=== PATIENT | female | born 1960 | race Caucasian/White ===

== ENCOUNTER 2018-10-01 16:04 | Inpatient (IN) | payer OTHER ==
[2018-10-01] MEDS: HYDROCODONE/APAP (5/325) TAB PO ×2 (16:38→19:08)
[2018-10-01] MEDS: ONDANSETRON (ODT) 4 MG TAB ODT (16:38)
[2018-10-01 19:51] LABS: ADD MAN DIFF? NO
[2018-10-01 19:53] LABS: WHITE BLOOD COUNT 10.8 10^3/ul (4.8-10.8)
[2018-10-01 19:53] LABS: BASOPHIL # 0.1 10^3/ul (0.0-0.1); BASOPHILS % 0.6 % (0.0-2.0); EOSINOPHILS # 0.1 10^3/ul (0.0-0.5); EOSINOPHILS % 0.9 % (0.0-7.0); LYMPHOCYTES # 2.9 10^3/ul (0.8-2.9); MEAN CORPUSCULAR HEMOGLOBIN 29.4 pg (29.0-33.0); MEAN CORPUSCULAR HGB CONC 33.3 g/dl (32.0-37.0); MEAN CORPUSCULAR VOLUME 88.2 fl (82.0-101.0); MEAN PLATELET VOLUME 10.2 fl (7.4-10.4); MONOCYTE # 0.8 10^3/ul (0.3-0.9); MONOCYTES % 6.9 % (0.0-11.0); NEUTROPHILS % 64.3 % (39.0-77.0); PLATELET COUNT 232 10^3/UL (140-415); RED BLOOD COUNT 4.42 10^6/ul (4.20-5.40); RED CELL DISTRIBUTION WIDTH 11.9 % (11.5-14.5)
[2018-10-01 20:14] LABS: ALANINE AMINOTRANSFERASE 18 IU/L (13-69); ALBUMIN 4.3 g/dl (3.3-4.9); ALBUMIN/GLOBULIN RATIO 1.22; ALKALINE PHOSPHATASE 115 IU/L (42-121); ANION GAP 11 (5-13); ASPARTATE AMINO TRANSFERASE 35 IU/L (15-46); BILIRUBIN,INDIRECT 0.5 mg/dl (0-1.1); BILIRUBIN,TOTAL 0.5 mg/dl (0.2-1.3); BLOOD UREA NITROGEN 9 mg/dl (7-20); CALCIUM 9.4 mg/dl (8.4-10.2); CARBON DIOXIDE 28 mmol/L (21-31); CHLORIDE 97 mmol/L (97-110); CREATININE 0.49 mg/dl (0.44-1.00); Estimated GFR > 60 mL/min (>60); GLUCOSE 221 mg/dl (70-220); POTASSIUM 4.5 mmol/L (3.5-5.1); SODIUM 136 mmol/L (135-144); TOTAL PROTEIN 7.8 g/dl (6.1-8.1)
[2018-10-01] MEDS ORDERED: NACL 0.9% 3 ML SYG IV (20:30)
[2018-10-01] MEDS ORDERED: morphine 2 MG INJ IV (20:30)
[2018-10-01] MEDS ORDERED: GLUCOSE GEL 15 GRAM TUBE PO ×2 (21:00)
[2018-10-01] MEDS ORDERED: GLUCAGON 1 MG INJ IM (21:00)
[2018-10-01] MEDS: INSULIN ASPART [NOVOLOG] 3 ML PEN SC (21:00)
[2018-10-01] MEDS ORDERED: DEXTROSE 50% 50 ML SYRINGE IV ×2 (21:00)
[2018-10-01] MEDS ORDERED: GLUCOSE GEL 15 GRAM TUBE BUCCAL (21:00)
[2018-10-01 21:52] LABS: INR 0.96; PROTIME 12.9 Sec (11.9-14.9)
[2018-10-01 21:53] LABS: PARTIAL THROMBOPLASTIN TIME 26.3 Sec (23.0-35.0)
[2018-10-02] MEDS: HYDROmorphONE 0.5 MG/0.5 ML SYG IV ×5 (00:05→19:55)
[2018-10-02] MEDS ORDERED: HEPARIN 5,000 UNIT/0.5 ML VIAL ×3 (00:12→15:28)
[2018-10-02] MEDS: clonAZEPAM 0.5 MG TAB PO ×3 (00:31→20:33)
[2018-10-02] MEDS: INSULIN ASPART [NOVOLOG] 3 ML PEN SC ×9 (00:38→21:00)
[2018-10-02] MEDS: HEPARIN 5,000 UNIT/1 ML VIAL SC ×4 (00:39→16:02)
[2018-10-02] MEDS: ACCU-CHEK XX ×5 (02:00→21:00)
[2018-10-02] MEDS: LORAZEPAM 2 MG INJ IV (02:17)
[2018-10-02] MEDS: SOD CHLORIDE 0.9% 1,000 ML IV (02:17)
[2018-10-02] MEDS: ACETAMINOPHEN 325 MG TAB PO (05:11)
[2018-10-02 05:32] LABS: ADD MAN DIFF? NO
[2018-10-02 05:36] LABS: BASOPHIL # 0.1 10^3/ul (0.0-0.1); BASOPHILS % 0.8 % (0.0-2.0); EOSINOPHILS % 0.4 % (0.0-7.0); HEMATOCRIT 34.1 % (37.0-47.0); HEMOGLOBIN 11.5 g/dl (12.0-16.0); LYMPHOCYTES # 1.5 10^3/ul (0.8-2.9); LYMPHOCYTES % 18.3 % (15.0-51.0); MEAN CORPUSCULAR HEMOGLOBIN 29.6 pg (29.0-33.0); MEAN CORPUSCULAR HGB CONC 33.7 g/dl (32.0-37.0); MEAN CORPUSCULAR VOLUME 87.9 fl (82.0-101.0); MEAN PLATELET VOLUME 10.5 fl (7.4-10.4); MONOCYTE # 0.7 10^3/ul (0.3-0.9); MONOCYTES % 7.8 % (0.0-11.0); NEUTROPHILS % 72.5 % (39.0-77.0); PLATELET COUNT 218 10^3/UL (140-415); RED BLOOD COUNT 3.88 10^6/ul (4.20-5.40); RED CELL DISTRIBUTION WIDTH 11.9 % (11.5-14.5)
[2018-10-02 05:36] LABS: WHITE BLOOD COUNT 8.3 10^3/ul (4.8-10.8)
[2018-10-02 06:01] LABS: HEMOGLOBIN A1C 10.4 % (0-5.9)
[2018-10-02 06:13] LABS: ALANINE AMINOTRANSFERASE 22 IU/L (13-69); ALBUMIN/GLOBULIN RATIO 1.42; ALKALINE PHOSPHATASE 118 IU/L (42-121); ANION GAP 11 (5-13); ASPARTATE AMINO TRANSFERASE 22 IU/L (15-46); BILIRUBIN,INDIRECT 0.7 mg/dl (0-1.1); BILIRUBIN,TOTAL 0.7 mg/dl (0.2-1.3); BLOOD UREA NITROGEN 9 mg/dl (7-20); CALCIUM 8.9 mg/dl (8.4-10.2); CARBON DIOXIDE 28 mmol/L (21-31); CHLORIDE 96 mmol/L (97-110); CHOL/HDL RATIO 4.4 RATIO; CHOLESTEROL 216 mg/dl (100-200); CREATININE 0.55 mg/dl (0.44-1.00); Estimated GFR > 60 mL/min (>60); GLUCOSE 264 mg/dl (70-220); HDL CHOLESTEROL 49 mg/dl (37-92); LDL CHOLESTEROL,CALCULATED 131 mg/dl; MAGNESIUM 1.8 mg/dl (1.7-2.5); SODIUM 135 mmol/L (135-144); TOTAL PROTEIN 6.8 g/dl (6.1-8.1); TRIGLYCERIDES 182 mg/dl (0-149)
[2018-10-02] MEDS: LORATADINE 10 MG TAB PO (08:27)
[2018-10-02] MEDS: ESCITALOPRAM 10 MG TAB PO (08:27)
[2018-10-02] MEDS: PANTOPRAZOLE (EC) 40 MG TAB PO (08:27)
[2018-10-02] MEDS: LACTATED RINGER'S 1,000 ML IV (11:51)
[2018-10-02 12:49] LABS: ADD UMIC YES; UR ASCORBIC ACID NEGATIVE (NEGATIVE); UR BACTERIA FEW /HPF (NONE SEEN); UR BILIRUBIN (Dip) NEGATIVE (NEGATIVE); UR BLOOD (Dip) 1+ mg/dL (NEGATIVE); UR CLARITY CLEAR (CLEAR); UR COLOR YELLOW (YELLOW); UR GLUCOSE (Dip) 2+ mg/dL (NEGATIVE); UR KETONES (Dip) TRACE mg/dL (NEGATIVE); UR LEUKOCYTE ESTERASE (Dip) TRACE Leu/ul (NEGATIVE); UR MUCUS FEW /HPF (NONE SEEN); UR NITRITE (Dip) NEGATIVE (NEGATIVE); UR RBC 31 /HPF (0-5); UR SPECIFIC GRAVITY (Dip) 1.023 (1.003-1.030); UR TOTAL PROTEIN (Dip) NEGATIVE (NEGATIVE); UR UROBILINOGEN (Dip) 1+ mg/dL (NEGATIVE); UR WBC 3 /HPF (0-5)
[2018-10-02] MEDS: metFORMIN 500 MG TAB NGT (17:43)
[2018-10-02] MEDS: GABAPENTIN 300 MG CAP PO (18:22)
[2018-10-02] MEDS: ATORVASTATIN 40 MG TAB PO (20:33)
[2018-10-02] MEDS: INSULIN GLARGINE [LANTus] (100 UNITS/ML) SYG SC (20:41)
[2018-10-02] MEDS ORDERED: ATORVASTATIN 20 MG TAB PO (21:00)
[2018-10-02] MEDS: BISACODYL (EC) 5 MG TAB PO (23:25)
[2018-10-02] MEDS: DOCUSATE SODIUM 100 MG CAP PO (23:25)
[2018-10-03] MEDS: HYDROmorphONE 0.5 MG/0.5 ML SYG IV ×3 (00:05→12:26)
[2018-10-03] MEDS: LACTATED RINGER'S 1,000 ML IV ×2 (01:20→05:58)
[2018-10-03] MEDS: ACCU-CHEK XX ×8 (02:00→21:00)
[2018-10-03] MEDS: ACETAMINOPHEN 325 MG TAB PO (02:12)
[2018-10-03] MEDS: PANTOPRAZOLE (EC) 40 MG TAB PO (05:58)
[2018-10-03] MEDS ORDERED: EPHEDrine SULFATE 50 MG/5 ML SYG (07:00)
[2018-10-03] MEDS: metFORMIN 500 MG TAB NGT ×2 (07:50→17:55)
[2018-10-03] MEDS: INSULIN ASPART [NOVOLOG] 3 ML PEN SC ×7 (07:50→21:38)
[2018-10-03] MEDS: ESCITALOPRAM 10 MG TAB PO (09:00)
[2018-10-03] MEDS: clonAZEPAM 0.5 MG TAB PO ×2 (09:00→21:39)
[2018-10-03] MEDS: LORATADINE 10 MG TAB PO (09:00)
[2018-10-03] MEDS: LISINOPRIL 10 MG TAB PO (11:00)
[2018-10-03] MEDS: FOSFOMYCIN 3 GM PACKET PO (11:00)
[2018-10-03] MEDS ORDERED: DIPHENHYDRAMINE 50 MG INJ IV (14:30)
[2018-10-03] MEDS ORDERED: hydrALAzine 20 MG INJ IV ×2 (14:30)
[2018-10-03] MEDS ORDERED: LABETALOL HCL 20MG INJ IV (14:30)
[2018-10-03] MEDS ORDERED: ONDANSETRON 4 MG INJ IV (14:30)
[2018-10-03] MEDS ORDERED: HYDROmorphONE 1 MG/5 ML IV SYRINGE IV ×3 (14:30)
[2018-10-03] MEDS ORDERED: MEPERIDINE 25 MG INJ IV (14:30)
[2018-10-03] MEDS ORDERED: FENTAnyl 50 MCG/ML VIAL (14:49)
[2018-10-03] MEDS ORDERED: MIDAZOLAM 1 MG/ML 2 ML INJ (14:49)
[2018-10-03] MEDS ORDERED: METOCLOPRAMIDE 10 MG INJ (14:49)
[2018-10-03] MEDS ORDERED: ROPIVACAINE 0.5 % 30 ML VIAL (14:49)
[2018-10-03] MEDS ORDERED: PROPOFOL 20 ML (14:49)
[2018-10-03] MEDS ORDERED: ONDANSETRON 4 MG INJ (14:49)
[2018-10-03] MEDS ORDERED: CEFAZOLIN 1 GM INJ (15:17)
[2018-10-03] MEDS: POLYMYXIN/BACITRACIN 1L IRRIG (17:07)
[2018-10-03] MEDS ORDERED: KETOROLAC 30 MG INJ (18:00)
[2018-10-03] MEDS: GABAPENTIN 300 MG CAP PO (18:55)
[2018-10-03] MEDS: CEFAZOLIN 2 GM/50 ML (PMX) 50 ML IVPB ×2 (19:00→23:14)
[2018-10-03] MEDS ORDERED: NACL 0.9% 3 ML SYG IV (19:00)
[2018-10-03 19:33] LABS: ADD MAN DIFF? NO
[2018-10-03 19:35] LABS: WHITE BLOOD COUNT 9.4 10^3/ul (4.8-10.8)
[2018-10-03 19:35] LABS: BASOPHIL # 0.1 10^3/ul (0.0-0.1); BASOPHILS % 0.7 % (0.0-2.0); EOSINOPHILS % 0.4 % (0.0-7.0); HEMATOCRIT 32.4 % (37.0-47.0); HEMOGLOBIN 11.2 g/dl (12.0-16.0); LYMPHOCYTES # 2.4 10^3/ul (0.8-2.9); MEAN CORPUSCULAR HGB CONC 34.6 g/dl (32.0-37.0); MEAN CORPUSCULAR VOLUME 86.9 fl (82.0-101.0); MONOCYTE # 0.7 10^3/ul (0.3-0.9); MONOCYTES % 7.5 % (0.0-11.0); NEUTROPHIL # 6.1 10^3/ul (1.6-7.5); NEUTROPHILS % 64.9 % (39.0-77.0); PLATELET COUNT 190 10^3/UL (140-415); RED BLOOD COUNT 3.73 10^6/ul (4.20-5.40)
[2018-10-03 19:54] LABS: ANION GAP 14 (5-13); BLOOD UREA NITROGEN 9 mg/dl (7-20); CALCIUM 8.5 mg/dl (8.4-10.2); CARBON DIOXIDE 20 mmol/L (21-31); CHLORIDE 94 mmol/L (97-110); CREATININE 0.59 mg/dl (0.44-1.00); Estimated GFR > 60 mL/min (>60); GLUCOSE 240 mg/dl (70-220); POTASSIUM 3.8 mmol/L (3.5-5.1); SODIUM 128 mmol/L (135-144)
[2018-10-03] MEDS: ONDANSETRON 4 MG INJ IV (20:52)
[2018-10-03] MEDS: SOD CHLORIDE 0.9% 1,000 ML IV (20:53)
[2018-10-03] MEDS: HYDROmorphONE 1 MG/ML SYG IV (21:24)
[2018-10-03] MEDS: ATORVASTATIN 40 MG TAB PO (21:25)
[2018-10-03] MEDS: INSULIN GLARGINE [LANTus] (100 UNITS/ML) SYG SC (21:39)
[2018-10-03] MEDS: DOCUSATE SODIUM 100 MG CAP PO (23:27)
[2018-10-03] MEDS: HYDROCODONE/APAP (5/325) TAB PO (23:27)
[2018-10-04] MEDS: LORAZEPAM 2 MG INJ IV (00:42)
[2018-10-04] MEDS: ACCU-CHEK XX ×6 (01:58→20:13)
[2018-10-04] MEDS: INSULIN ASPART [NOVOLOG] 3 ML PEN SC ×8 (02:39→20:13)
[2018-10-04] MEDS: HYDROCODONE/APAP (5/325) TAB PO ×3 (02:46→09:46)
[2018-10-04] MEDS: LACTATED RINGER'S 1,000 ML IV (04:00)
[2018-10-04 05:01] LABS: ADD MAN DIFF? NO
[2018-10-04 05:13] LABS: BASOPHILS % 0.4 % (0.0-2.0); EOSINOPHILS % 0.2 % (0.0-7.0); HEMATOCRIT 33.6 % (37.0-47.0); HEMOGLOBIN 11.4 g/dl (12.0-16.0); LYMPHOCYTES # 1.6 10^3/ul (0.8-2.9); LYMPHOCYTES % 15.8 % (15.0-51.0); MEAN CORPUSCULAR HEMOGLOBIN 29.8 pg (29.0-33.0); MEAN CORPUSCULAR HGB CONC 33.9 g/dl (32.0-37.0); MEAN CORPUSCULAR VOLUME 87.7 fl (82.0-101.0); MEAN PLATELET VOLUME 10.2 fl (7.4-10.4); MONOCYTE # 1.1 10^3/ul (0.3-0.9); MONOCYTES % 11.4 % (0.0-11.0); NEUTROPHILS % 71.7 % (39.0-77.0); PLATELET COUNT 191 10^3/UL (140-415); RED BLOOD COUNT 3.83 10^6/ul (4.20-5.40); RED CELL DISTRIBUTION WIDTH 11.9 % (11.5-14.5)
[2018-10-04 05:13] LABS: WHITE BLOOD COUNT 9.8 10^3/ul (4.8-10.8)
[2018-10-04 05:21] LABS: ANION GAP 11 (5-13); BLOOD UREA NITROGEN 7 mg/dl (7-20); CALCIUM 8.5 mg/dl (8.4-10.2); CARBON DIOXIDE 25 mmol/L (21-31); CHLORIDE 92 mmol/L (97-110); CREATININE 0.47 mg/dl (0.44-1.00); Estimated GFR > 60 mL/min (>60); GLUCOSE 177 mg/dl (70-220); SODIUM 128 mmol/L (135-144)
[2018-10-04] MEDS: CEFAZOLIN 2 GM/50 ML (PMX) 50 ML IVPB ×2 (06:29→14:53)
[2018-10-04] MEDS: PANTOPRAZOLE (EC) 40 MG TAB PO (06:30)
[2018-10-04 06:36] LABS: POTASSIUM 3.9 mmol/L (3.5-5.1)
[2018-10-04] MEDS: BISACODYL (EC) 5 MG TAB PO (07:05)
[2018-10-04] MEDS: HYDROmorphONE 0.5 MG/0.5 ML SYG IV ×2 (07:49→13:33)
[2018-10-04] MEDS: clonAZEPAM 0.5 MG TAB PO ×2 (08:34→20:13)
[2018-10-04] MEDS: metFORMIN 500 MG TAB NGT ×2 (08:34→17:55)
[2018-10-04] MEDS: LISINOPRIL 10 MG TAB PO (08:35)
[2018-10-04] MEDS: LORATADINE 10 MG TAB PO (08:35)
[2018-10-04] MEDS: ESCITALOPRAM 10 MG TAB PO (08:35)
[2018-10-04] MEDS: SOD CHLORIDE 0.9% 1,000 ML IV (08:36)
[2018-10-04] MEDS: ENOXAPARIN 40 MG/0.4 ML SYG SC (08:40)
[2018-10-04] MEDS: HYDROCODONE/APAP (10/325) TAB PO ×3 (10:57→20:04)
[2018-10-04 12:05] LABS: OSMOLALITY,URINE 559 mOsm/kg (250-1200)
[2018-10-04 12:05] LABS: OSMOLALITY 261 mOsm/kg (280-295)
[2018-10-04] MEDS: POLYETHYLENE GLYCOL 17 GM PACKET PO ×2 (12:13→20:05)
[2018-10-04] MEDS: HYDROmorphONE 1 MG/ML SYG IV ×2 (16:43→22:24)
[2018-10-04] MEDS: GABAPENTIN 300 MG CAP PO (19:08)
[2018-10-04] MEDS: ATORVASTATIN 40 MG TAB PO (20:04)
[2018-10-04] MEDS: INSULIN GLARGINE [LANTus] (100 UNITS/ML) SYG SC (20:12)
[2018-10-05] MEDS: HYDROCODONE/APAP (10/325) TAB PO ×5 (01:14→21:45)
[2018-10-05] MEDS: ACCU-CHEK XX ×5 (02:00→20:36)
[2018-10-05 05:05] LABS: ADD MAN DIFF? NO
[2018-10-05 05:09] LABS: ABNORMAL IP MESSAGE 1; BASOPHILS % 0.3 % (0.0-2.0); EOSINOPHILS # 0.1 10^3/ul (0.0-0.5); EOSINOPHILS % 1.3 % (0.0-7.0); HEMATOCRIT 30.9 % (37.0-47.0); HEMOGLOBIN 10.6 g/dl (12.0-16.0); LYMPHOCYTES # 2.6 10^3/ul (0.8-2.9); LYMPHOCYTES % 24.4 % (15.0-51.0); MEAN CORPUSCULAR HEMOGLOBIN 29.7 pg (29.0-33.0); MEAN CORPUSCULAR HGB CONC 34.3 g/dl (32.0-37.0); MEAN CORPUSCULAR VOLUME 86.6 fl (82.0-101.0); MEAN PLATELET VOLUME 10.1 fl (7.4-10.4); MONOCYTE # 1.6 10^3/ul (0.3-0.9); MONOCYTES % 14.7 % (0.0-11.0); NEUTROPHIL # 6.2 10^3/ul (1.6-7.5); NEUTROPHILS % 58.9 % (39.0-77.0); PLATELET COUNT 231 10^3/UL (140-415); RED BLOOD COUNT 3.57 10^6/ul (4.20-5.40); RED CELL DISTRIBUTION WIDTH 11.9 % (11.5-14.5)
[2018-10-05 05:09] LABS: WHITE BLOOD COUNT 10.5 10^3/ul (4.8-10.8)
[2018-10-05 05:40] LABS: ANION GAP 13 (5-13); BLOOD UREA NITROGEN 4 mg/dl (7-20); CALCIUM 8.7 mg/dl (8.4-10.2); CARBON DIOXIDE 25 mmol/L (21-31); CHLORIDE 90 mmol/L (97-110); CREATININE 0.46 mg/dl (0.44-1.00); Estimated GFR > 60 mL/min (>60); GLUCOSE 77 mg/dl (70-220); POSITIVE DIFF @See below; POTASSIUM 3.7 mmol/L (3.5-5.1); SODIUM 128 mmol/L (135-144)
[2018-10-05] MEDS: PANTOPRAZOLE (EC) 40 MG TAB PO (05:40)
[2018-10-05 05:41] LABS: MAGNESIUM 1.8 mg/dl (1.7-2.5)
[2018-10-05 05:41] LABS: PHOSPHORUS 3.7 mg/dl (2.5-4.9)
[2018-10-05] MEDS: DOCUSATE SODIUM 100 MG CAP PO (06:16)
[2018-10-05] MEDS: INSULIN ASPART [NOVOLOG] 3 ML PEN SC ×7 (07:50→20:50)
[2018-10-05] MEDS: LISINOPRIL 10 MG TAB PO (08:46)
[2018-10-05] MEDS: LORATADINE 10 MG TAB PO (08:46)
[2018-10-05] MEDS: metFORMIN 500 MG TAB NGT ×2 (08:46→17:52)
[2018-10-05] MEDS: clonAZEPAM 0.5 MG TAB PO ×2 (08:49→20:29)
[2018-10-05] MEDS: POLYETHYLENE GLYCOL 17 GM PACKET PO ×2 (08:49→20:29)
[2018-10-05] MEDS: ESCITALOPRAM 10 MG TAB PO (08:49)
[2018-10-05] MEDS: ENOXAPARIN 40 MG/0.4 ML SYG SC (08:50)
[2018-10-05] MEDS: HYDROmorphONE 1 MG/ML SYG IV ×2 (08:56→13:00)
[2018-10-05] MEDS: GABAPENTIN 300 MG CAP PO (17:52)
[2018-10-05] MEDS: BISACODYL (EC) 5 MG TAB PO (17:52)
[2018-10-05] MEDS: ATORVASTATIN 40 MG TAB PO (20:29)
[2018-10-05] MEDS: INSULIN GLARGINE [LANTus] (100 UNITS/ML) SYG SC (20:31)
[2018-10-05 20:32] LABS: SODIUM,URINE RANDOM 41 mmol/L (30-90)
[2018-10-05 20:55] LABS: AMPHETAMINE/METHAMPHETAMINE NEGATIVE (NEGATIVE); BARBITURATES NEGATIVE (NEGATIVE); BENZODIAZEPINES NEGATIVE (NEGATIVE); CANNABINOIDS NEGATIVE (NEGATIVE); COCAINE NEGATIVE (NEGATIVE)
[2018-10-05 20:56] LABS: OPIATES POSITIVE (NEGATIVE)
[2018-10-05 20:56] LABS: OSMOLALITY,URINE 752 mOsm/kg (250-1200)
[2018-10-06] MEDS: HYDROmorphONE 1 MG/ML SYG IV ×2 (00:41→10:38)
[2018-10-06] MEDS: ACCU-CHEK XX ×5 (02:00→20:49)
[2018-10-06] MEDS: HYDROCODONE/APAP (10/325) TAB PO ×4 (04:18→22:48)
[2018-10-06 05:35] LABS: ADD MAN DIFF? NO
[2018-10-06 05:50] LABS: BASOPHIL # 0.1 10^3/ul (0.0-0.1); BASOPHILS % 0.5 % (0.0-2.0); EOSINOPHILS # 0.1 10^3/ul (0.0-0.5); EOSINOPHILS % 1.4 % (0.0-7.0); HEMATOCRIT 28.4 % (37.0-47.0); HEMOGLOBIN 9.8 g/dl (12.0-16.0); LYMPHOCYTES # 1.8 10^3/ul (0.8-2.9); LYMPHOCYTES % 18.3 % (15.0-51.0); MEAN CORPUSCULAR HEMOGLOBIN 29.7 pg (29.0-33.0); MEAN CORPUSCULAR HGB CONC 34.5 g/dl (32.0-37.0); MEAN CORPUSCULAR VOLUME 86.1 fl (82.0-101.0); MONOCYTE # 1.2 10^3/ul (0.3-0.9); MONOCYTES % 12.3 % (0.0-11.0); NEUTROPHIL # 6.6 10^3/ul (1.6-7.5); NEUTROPHILS % 66.9 % (39.0-77.0); PLATELET COUNT 254 10^3/UL (140-415)
[2018-10-06 05:50] LABS: WHITE BLOOD COUNT 9.8 10^3/ul (4.8-10.8)
[2018-10-06] MEDS: PANTOPRAZOLE (EC) 40 MG TAB PO (05:59)
[2018-10-06 06:30] LABS: PHOSPHORUS 3.2 mg/dl (2.5-4.9)
[2018-10-06 06:30] LABS: MAGNESIUM 1.8 mg/dl (1.7-2.5)
[2018-10-06 07:20] LABS: ANION GAP 14 (5-13); BLOOD UREA NITROGEN 6 mg/dl (7-20); CALCIUM 8.5 mg/dl (8.4-10.2); CARBON DIOXIDE 23 mmol/L (21-31); CHLORIDE 87 mmol/L (97-110); CREATININE 0.38 mg/dl (0.44-1.00); Estimated GFR > 60 mL/min (>60); GLUCOSE 125 mg/dl (70-220); POTASSIUM 4.3 mmol/L (3.5-5.1); SODIUM 124 mmol/L (135-144)
[2018-10-06 08:07] LABS: OSMOLALITY 252 mOsm/kg (280-295)
[2018-10-06] MEDS: POLYETHYLENE GLYCOL 17 GM PACKET PO ×2 (08:27→20:49)
[2018-10-06] MEDS: LORATADINE 10 MG TAB PO (08:28)
[2018-10-06] MEDS: LISINOPRIL 10 MG TAB PO (08:28)
[2018-10-06] MEDS: metFORMIN 500 MG TAB NGT ×2 (08:29→17:42)
[2018-10-06] MEDS: clonAZEPAM 0.5 MG TAB PO ×2 (08:29→20:46)
[2018-10-06] MEDS: ENOXAPARIN 40 MG/0.4 ML SYG SC (08:31)
[2018-10-06] MEDS: ESCITALOPRAM 10 MG TAB PO (08:32)
[2018-10-06] MEDS: INSULIN ASPART [NOVOLOG] 3 ML PEN SC ×7 (08:42→20:49)
[2018-10-06 10:49] LABS: URIC ACID 3.7 mg/dl (3.1-7.9)
[2018-10-06 11:18] LABS: ADD UMIC YES; UR ASCORBIC ACID 20 mg/dL (NEGATIVE); UR BILIRUBIN (Dip) NEGATIVE (NEGATIVE); UR BLOOD (Dip) NEGATIVE (NEGATIVE); UR CLARITY CLEAR (CLEAR); UR COLOR YELLOW (YELLOW); UR GLUCOSE (Dip) 3+ mg/dL (NEGATIVE); UR KETONES (Dip) 2+ mg/dL (NEGATIVE); UR LEUKOCYTE ESTERASE (Dip) TRACE Leu/ul (NEGATIVE); UR MUCUS FEW /HPF (NONE SEEN); UR NITRITE (Dip) NEGATIVE (NEGATIVE); UR RBC 3 /HPF (0-5); UR SPECIFIC GRAVITY (Dip) 1.022 (1.003-1.030); UR TOTAL PROTEIN (Dip) 1+ mg/dl (NEGATIVE); UR UROBILINOGEN (Dip) 2+ mg/dL (NEGATIVE); UR WBC 12 /HPF (0-5)
[2018-10-06 12:02] LABS: CREATININE,URINE RANDOM 77.84 mg/dl (20-320)
[2018-10-06 12:02] LABS: SODIUM,URINE RANDOM 73 mmol/L (30-90)
[2018-10-06 12:17] LABS: OSMOLALITY,URINE 751 mOsm/kg (250-1200)
[2018-10-06 14:12] LABS: ANION GAP 11 (5-13); BLOOD UREA NITROGEN 5 mg/dl (7-20); CALCIUM 8.6 mg/dl (8.4-10.2); CARBON DIOXIDE 27 mmol/L (21-31); CHLORIDE 87 mmol/L (97-110); CREATININE 0.43 mg/dl (0.44-1.00); Estimated GFR > 60 mL/min (>60); GLUCOSE 140 mg/dl (70-220); POTASSIUM 3.9 mmol/L (3.5-5.1); SODIUM 125 mmol/L (135-144)
[2018-10-06] MEDS: GABAPENTIN 300 MG CAP PO (17:46)
[2018-10-06] MEDS: INSULIN GLARGINE [LANTus] (100 UNITS/ML) SYG SC (20:48)
[2018-10-06] MEDS: ATORVASTATIN 40 MG TAB PO (20:49)
[2018-10-07] MEDS: ACCU-CHEK XX ×5 (02:00→21:37)
[2018-10-07 05:13] LABS: ADD MAN DIFF? NO
[2018-10-07] MEDS: HYDROCODONE/APAP (10/325) TAB PO ×5 (05:13→21:32)
[2018-10-07] MEDS: PANTOPRAZOLE (EC) 40 MG TAB PO (05:14)
[2018-10-07 05:25] LABS: BASOPHIL # 0.1 10^3/ul (0.0-0.1); BASOPHILS % 0.6 % (0.0-2.0); EOSINOPHILS # 0.2 10^3/ul (0.0-0.5); EOSINOPHILS % 1.7 % (0.0-7.0); HEMATOCRIT 28.2 % (37.0-47.0); HEMOGLOBIN 9.8 g/dl (12.0-16.0); LYMPHOCYTES # 1.4 10^3/ul (0.8-2.9); LYMPHOCYTES % 15.5 % (15.0-51.0); MEAN CORPUSCULAR HEMOGLOBIN 29.8 pg (29.0-33.0); MEAN CORPUSCULAR HGB CONC 34.8 g/dl (32.0-37.0); MEAN CORPUSCULAR VOLUME 85.7 fl (82.0-101.0); MEAN PLATELET VOLUME 9.6 fl (7.4-10.4); MONOCYTE # 1.1 10^3/ul (0.3-0.9); MONOCYTES % 12.2 % (0.0-11.0); NEUTROPHIL # 6.1 10^3/ul (1.6-7.5); NEUTROPHILS % 69.4 % (39.0-77.0); PLATELET COUNT 313 10^3/UL (140-415); RED BLOOD COUNT 3.29 10^6/ul (4.20-5.40); RED CELL DISTRIBUTION WIDTH 11.8 % (11.5-14.5)
[2018-10-07 05:25] LABS: WHITE BLOOD COUNT 8.8 10^3/ul (4.8-10.8)
[2018-10-07 05:42] LABS: MAGNESIUM 1.8 mg/dl (1.7-2.5)
[2018-10-07 05:42] LABS: PHOSPHORUS 3.3 mg/dl (2.5-4.9)
[2018-10-07 05:52] LABS: ANION GAP 14 (5-13); BLOOD UREA NITROGEN 5 mg/dl (7-20); CALCIUM 8.5 mg/dl (8.4-10.2); CARBON DIOXIDE 25 mmol/L (21-31); CHLORIDE 86 mmol/L (97-110); CREATININE 0.36 mg/dl (0.44-1.00); Estimated GFR > 60 mL/min (>60); GLUCOSE 137 mg/dl (70-220); POTASSIUM 3.8 mmol/L (3.5-5.1); SODIUM 125 mmol/L (135-144)
[2018-10-07] MEDS: FUROSEMIDE 20 MG TAB PO (08:59)
[2018-10-07] MEDS: ESCITALOPRAM 10 MG TAB PO (08:59)
[2018-10-07] MEDS: LORATADINE 10 MG TAB PO (08:59)
[2018-10-07] MEDS: LISINOPRIL 10 MG TAB PO (08:59)
[2018-10-07] MEDS: metFORMIN 500 MG TAB NGT ×2 (09:00→18:05)
[2018-10-07] MEDS: INSULIN ASPART [NOVOLOG] 3 ML PEN SC ×7 (09:09→21:00)
[2018-10-07] MEDS: ENOXAPARIN 40 MG/0.4 ML SYG SC (09:11)
[2018-10-07] MEDS: clonAZEPAM 0.5 MG TAB PO ×2 (09:22→21:24)
[2018-10-07] MEDS: POLYETHYLENE GLYCOL 17 GM PACKET PO ×2 (09:22→21:12)
[2018-10-07] MEDS: SODIUM CHLORIDE 1 GM TAB PO ×4 (11:51→21:12)
[2018-10-07 15:07] LABS: SODIUM 123 mmol/L (135-144)
[2018-10-07 15:17] LABS: CREATININE, RANDOM URINE 79 mg/dL (20-275); MICROALBUMIN 2.1 mg/dL; MICROALBUMIN/CREATININE RATIO 27 (<30)
[2018-10-07] MEDS: GABAPENTIN 300 MG CAP PO (18:41)
[2018-10-07 18:50] LABS: SODIUM 123 mmol/L (135-144)
[2018-10-07] MEDS: ATORVASTATIN 40 MG TAB PO (21:00)
[2018-10-07] MEDS: DEMECLOCYCLINE 150 MG TAB PO (21:00)
[2018-10-07] MEDS: INSULIN GLARGINE [LANTus] (100 UNITS/ML) SYG SC (21:21)
[2018-10-08] MEDS: HYDROCODONE/APAP (10/325) TAB PO ×3 (01:42→09:57)
[2018-10-08] MEDS: ACCU-CHEK XX ×5 (01:54→21:26)
[2018-10-08 05:39] LABS: ADD MAN DIFF? NO
[2018-10-08] MEDS: PANTOPRAZOLE (EC) 40 MG TAB PO (05:44)
[2018-10-08] MEDS: DOCUSATE SODIUM 100 MG CAP PO (05:44)
[2018-10-08] MEDS: BISACODYL (EC) 5 MG TAB PO (05:44)
[2018-10-08 05:47] LABS: WHITE BLOOD COUNT 7.9 10^3/ul (4.8-10.8)
[2018-10-08 05:47] LABS: BASOPHIL # 0.1 10^3/ul (0.0-0.1); BASOPHILS % 0.8 % (0.0-2.0); EOSINOPHILS # 0.2 10^3/ul (0.0-0.5); EOSINOPHILS % 2.5 % (0.0-7.0); HEMATOCRIT 29.1 % (37.0-47.0); HEMOGLOBIN 10.3 g/dl (12.0-16.0); LYMPHOCYTES # 1.7 10^3/ul (0.8-2.9); LYMPHOCYTES % 21.3 % (15.0-51.0); MEAN CORPUSCULAR HEMOGLOBIN 30.1 pg (29.0-33.0); MEAN CORPUSCULAR HGB CONC 35.4 g/dl (32.0-37.0); MEAN CORPUSCULAR VOLUME 85.1 fl (82.0-101.0); MEAN PLATELET VOLUME 9.6 fl (7.4-10.4); NEUTROPHIL # 4.9 10^3/ul (1.6-7.5); NEUTROPHILS % 61.8 % (39.0-77.0); PLATELET COUNT 367 10^3/UL (140-415); RED BLOOD COUNT 3.42 10^6/ul (4.20-5.40); RED CELL DISTRIBUTION WIDTH 11.9 % (11.5-14.5)
[2018-10-08 06:22] LABS: ANION GAP 12 (5-13); BLOOD UREA NITROGEN 7 mg/dl (7-20); CALCIUM 8.7 mg/dl (8.4-10.2); CARBON DIOXIDE 27 mmol/L (21-31); CHLORIDE 83 mmol/L (97-110); CREATININE 0.38 mg/dl (0.44-1.00); Estimated GFR > 60 mL/min (>60); GLUCOSE 123 mg/dl (70-220); MAGNESIUM 1.8 mg/dl (1.7-2.5); PHOSPHORUS 3.8 mg/dl (2.5-4.9); POTASSIUM 3.5 mmol/L (3.5-5.1); SODIUM 122 mmol/L (135-144)
[2018-10-08] MEDS: INSULIN ASPART [NOVOLOG] 3 ML PEN SC ×7 (07:50→21:00)
[2018-10-08] MEDS: POLYETHYLENE GLYCOL 17 GM PACKET PO ×2 (08:39→21:25)
[2018-10-08] MEDS: DEMECLOCYCLINE 150 MG TAB PO ×3 (08:51→21:00)
[2018-10-08] MEDS: clonAZEPAM 0.5 MG TAB PO ×2 (08:51→21:25)
[2018-10-08] MEDS: ESCITALOPRAM 10 MG TAB PO (08:51)
[2018-10-08] MEDS: LISINOPRIL 10 MG TAB PO (08:52)
[2018-10-08] MEDS: FUROSEMIDE 20 MG TAB PO (08:52)
[2018-10-08] MEDS: metFORMIN 500 MG TAB NGT ×2 (08:52→17:54)
[2018-10-08] MEDS: LORATADINE 10 MG TAB PO (08:52)
[2018-10-08] MEDS: SODIUM CHLORIDE 1 GM TAB PO ×3 (08:53→21:24)
[2018-10-08] MEDS: ENOXAPARIN 40 MG/0.4 ML SYG SC (08:58)
[2018-10-08] MEDS: HYDROmorphONE 1 MG/ML SYG IV (11:02)
[2018-10-08 11:40] LABS: SODIUM 121 mmol/L (135-144)
[2018-10-08] MEDS: ONDANSETRON 4 MG INJ IV (13:04)
[2018-10-08] MEDS: LIDOCAINE 1% (MPF) 5 ML VIAL SC (15:40)
[2018-10-08 17:13] LABS: ANION GAP 12 (5-13); BLOOD UREA NITROGEN 5 mg/dl (7-20); CALCIUM 8.7 mg/dl (8.4-10.2); CARBON DIOXIDE 29 mmol/L (21-31); CHLORIDE 84 mmol/L (97-110); CREATININE 0.36 mg/dl (0.44-1.00); Estimated GFR > 60 mL/min (>60); GLUCOSE 115 mg/dl (70-220); POTASSIUM 3.6 mmol/L (3.5-5.1); SODIUM 125 mmol/L (135-144)
[2018-10-08] MEDS: GABAPENTIN 300 MG CAP PO (18:05)
[2018-10-08] MEDS: NACL 3% 500 ML IV (18:05)
[2018-10-08] MEDS: ATORVASTATIN 40 MG TAB PO (21:25)
[2018-10-08] MEDS: hydrOXYzine HCL 25 MG TAB PO (21:27)
[2018-10-08] MEDS: INSULIN GLARGINE [LANTus] (100 UNITS/ML) SYG SC (21:49)
[2018-10-09] MEDS: ACCU-CHEK XX ×5 (01:07→21:00)
[2018-10-09] MEDS: PANTOPRAZOLE (EC) 40 MG TAB PO (06:06)
[2018-10-09] MEDS: LORAZEPAM 2 MG INJ IV ×3 (06:06→23:41)
[2018-10-09 06:39] LABS: ANION GAP 11 (5-13); BLOOD UREA NITROGEN 6 mg/dl (7-20); CALCIUM 9.1 mg/dl (8.4-10.2); CARBON DIOXIDE 28 mmol/L (21-31); CHLORIDE 93 mmol/L (97-110); CREATININE 0.41 mg/dl (0.44-1.00); Estimated GFR > 60 mL/min (>60); GLUCOSE 135 mg/dl (70-220); MAGNESIUM 1.8 mg/dl (1.7-2.5); PHOSPHORUS 3.7 mg/dl (2.5-4.9); POTASSIUM 3.5 mmol/L (3.5-5.1); SODIUM 132 mmol/L (135-144)
[2018-10-09] MEDS: INSULIN ASPART [NOVOLOG] 3 ML PEN SC ×7 (08:00→22:07)
[2018-10-09] MEDS: DEMECLOCYCLINE 150 MG TAB PO ×3 (08:48→22:05)
[2018-10-09] MEDS: ESCITALOPRAM 10 MG TAB PO (08:48)
[2018-10-09] MEDS: metFORMIN 500 MG TAB NGT ×2 (08:48→17:41)
[2018-10-09] MEDS: clonAZEPAM 0.5 MG TAB PO (08:48)
[2018-10-09] MEDS: POLYETHYLENE GLYCOL 17 GM PACKET PO ×2 (08:49→21:00)
[2018-10-09] MEDS: LISINOPRIL 10 MG TAB PO (08:49)
[2018-10-09] MEDS: LORATADINE 10 MG TAB PO (08:49)
[2018-10-09] MEDS: SODIUM CHLORIDE 1 GM TAB PO ×3 (08:49→22:05)
[2018-10-09] MEDS: FUROSEMIDE 20 MG TAB PO (08:49)
[2018-10-09] MEDS: ENOXAPARIN 40 MG/0.4 ML SYG SC (09:09)
[2018-10-09] MEDS: GABAPENTIN 300 MG CAP PO (17:41)
[2018-10-09] MEDS: ATORVASTATIN 40 MG TAB PO (22:06)
[2018-10-09] MEDS: INSULIN GLARGINE [LANTus] (100 UNITS/ML) SYG SC (22:08)
[2018-10-09] MEDS: HALOPERIDOL 5 MG INJ IM (23:41)
[2018-10-10] MEDS: HYDROmorphONE 1 MG/ML SYG IV (01:27)
[2018-10-10] MEDS: ACCU-CHEK XX ×5 (02:47→21:00)
[2018-10-10 06:06] LABS: ADD MAN DIFF? NO
[2018-10-10 06:10] LABS: BASOPHIL # 0.1 10^3/ul (0.0-0.1); BASOPHILS % 0.7 % (0.0-2.0); EOSINOPHILS # 0.2 10^3/ul (0.0-0.5); EOSINOPHILS % 1.5 % (0.0-7.0); HEMATOCRIT 29.3 % (37.0-47.0); HEMOGLOBIN 9.9 g/dl (12.0-16.0); LYMPHOCYTES # 2.3 10^3/ul (0.8-2.9); LYMPHOCYTES % 23.2 % (15.0-51.0); MEAN CORPUSCULAR HEMOGLOBIN 29.6 pg (29.0-33.0); MEAN CORPUSCULAR HGB CONC 33.8 g/dl (32.0-37.0); MEAN CORPUSCULAR VOLUME 87.5 fl (82.0-101.0); MEAN PLATELET VOLUME 8.6 fl (7.4-10.4); MONOCYTE # 1.2 10^3/ul (0.3-0.9); MONOCYTES % 11.5 % (0.0-11.0); NEUTROPHIL # 6.2 10^3/ul (1.6-7.5); NEUTROPHILS % 62.2 % (39.0-77.0); PLATELET COUNT 444 10^3/UL (140-415); RED BLOOD COUNT 3.35 10^6/ul (4.20-5.40); RED CELL DISTRIBUTION WIDTH 12.6 % (11.5-14.5)
[2018-10-10] MEDS: PANTOPRAZOLE (EC) 40 MG TAB PO (06:28)
[2018-10-10 06:44] LABS: ANION GAP 13 (5-13); BLOOD UREA NITROGEN 9 mg/dl (7-20); CALCIUM 9.1 mg/dl (8.4-10.2); CARBON DIOXIDE 27 mmol/L (21-31); CHLORIDE 95 mmol/L (97-110); CREATININE 0.44 mg/dl (0.44-1.00); Estimated GFR > 60 mL/min (>60); GLUCOSE 236 mg/dl (70-220); POTASSIUM 3.2 mmol/L (3.5-5.1); SODIUM 135 mmol/L (135-144)
[2018-10-10 06:49] LABS: PHOSPHORUS 3.8 mg/dl (2.5-4.9)
[2018-10-10 06:49] LABS: MAGNESIUM 1.6 mg/dl (1.7-2.5)
[2018-10-10] MEDS: ENOXAPARIN 40 MG/0.4 ML SYG SC (08:44)
[2018-10-10] MEDS: INSULIN ASPART [NOVOLOG] 3 ML PEN SC ×7 (08:45→21:00)
[2018-10-10] MEDS: metFORMIN 500 MG TAB NGT ×2 (08:47→17:12)
[2018-10-10] MEDS: FUROSEMIDE 20 MG TAB PO (08:48)
[2018-10-10] MEDS: SODIUM CHLORIDE 1 GM TAB PO ×3 (08:48→20:39)
[2018-10-10] MEDS: ESCITALOPRAM 10 MG TAB PO (08:48)
[2018-10-10] MEDS: LORATADINE 10 MG TAB PO (08:48)
[2018-10-10] MEDS: DEMECLOCYCLINE 150 MG TAB PO ×3 (08:49→20:39)
[2018-10-10] MEDS: LISINOPRIL 10 MG TAB PO (08:49)
[2018-10-10] MEDS: POLYETHYLENE GLYCOL 17 GM PACKET PO ×2 (08:49→20:40)
[2018-10-10] MEDS: POTASSIUM CHLORIDE (SR) 20 MEQ TAB PO (12:52)
[2018-10-10] MEDS: MAGNESIUM SULFATE 2 GM/50 ML 50 ML IVPB (12:53)
[2018-10-10] MEDS: HYDROmorphONE 0.5 MG/0.5 ML SYG IV (17:13)
[2018-10-10] MEDS: ONDANSETRON 4 MG INJ IV (17:20)
[2018-10-10] MEDS: GABAPENTIN 300 MG CAP PO (18:58)
[2018-10-10] MEDS: ATORVASTATIN 40 MG TAB PO (20:40)
[2018-10-10] MEDS: INSULIN GLARGINE [LANTus] (100 UNITS/ML) SYG SC (20:41)
[2018-10-10] MEDS: LORAZEPAM 2 MG INJ IV (23:01)
[2018-10-11] MEDS: ACCU-CHEK XX ×5 (02:00→20:54)
[2018-10-11] MEDS: PANTOPRAZOLE (EC) 40 MG TAB PO (05:34)
[2018-10-11 06:14] LABS: ADD MAN DIFF? NO
[2018-10-11 06:23] LABS: WHITE BLOOD COUNT 10.2 10^3/ul (4.8-10.8)
[2018-10-11 06:23] LABS: BASOPHIL # 0.1 10^3/ul (0.0-0.1); BASOPHILS % 0.6 % (0.0-2.0); EOSINOPHILS # 0.4 10^3/ul (0.0-0.5); EOSINOPHILS % 3.5 % (0.0-7.0); HEMATOCRIT 29.6 % (37.0-47.0); HEMOGLOBIN 9.9 g/dl (12.0-16.0); LYMPHOCYTES # 2.6 10^3/ul (0.8-2.9); LYMPHOCYTES % 25.2 % (15.0-51.0); MEAN CORPUSCULAR HEMOGLOBIN 29.3 pg (29.0-33.0); MEAN CORPUSCULAR HGB CONC 33.4 g/dl (32.0-37.0); MEAN CORPUSCULAR VOLUME 87.6 fl (82.0-101.0); MEAN PLATELET VOLUME 8.4 fl (7.4-10.4); MONOCYTES % 9.6 % (0.0-11.0); NEUTROPHIL # 6.1 10^3/ul (1.6-7.5); NEUTROPHILS % 60.1 % (39.0-77.0); PLATELET COUNT 428 10^3/UL (140-415); RED BLOOD COUNT 3.38 10^6/ul (4.20-5.40); RED CELL DISTRIBUTION WIDTH 12.5 % (11.5-14.5)
[2018-10-11 06:54] LABS: ANION GAP 10 (5-13); BLOOD UREA NITROGEN 10 mg/dl (7-20); CARBON DIOXIDE 30 mmol/L (21-31); CHLORIDE 90 mmol/L (97-110); CREATININE 0.41 mg/dl (0.44-1.00); Estimated GFR > 60 mL/min (>60); GLUCOSE 143 mg/dl (70-220); POTASSIUM 3.6 mmol/L (3.5-5.1); SODIUM 130 mmol/L (135-144)
[2018-10-11 06:55] LABS: PHOSPHORUS 4.8 mg/dl (2.5-4.9)
[2018-10-11 06:55] LABS: MAGNESIUM 1.7 mg/dl (1.7-2.5)
[2018-10-11] MEDS: metFORMIN 500 MG TAB NGT ×2 (08:53→17:20)
[2018-10-11] MEDS: FUROSEMIDE 20 MG TAB PO (08:54)
[2018-10-11] MEDS: POLYETHYLENE GLYCOL 17 GM PACKET PO ×2 (08:54→20:53)
[2018-10-11] MEDS: LORATADINE 10 MG TAB PO (08:54)
[2018-10-11] MEDS: ESCITALOPRAM 10 MG TAB PO (08:54)
[2018-10-11] MEDS: SODIUM CHLORIDE 1 GM TAB PO ×3 (08:54→20:43)
[2018-10-11] MEDS: LISINOPRIL 10 MG TAB PO (08:55)
[2018-10-11] MEDS: INSULIN ASPART [NOVOLOG] 3 ML PEN SC ×7 (08:56→20:54)
[2018-10-11] MEDS: ENOXAPARIN 40 MG/0.4 ML SYG SC (08:56)
[2018-10-11] MEDS: DEMECLOCYCLINE 150 MG TAB PO ×3 (10:01→20:43)
[2018-10-11] MEDS: HYDROmorphONE 0.5 MG/0.5 ML SYG IV (14:54)
[2018-10-11] MEDS ORDERED: DOCUSATE SODIUM 100 MG CAP PO (17:30)
[2018-10-11] MEDS: GABAPENTIN 300 MG CAP PO (18:34)
[2018-10-11] MEDS: INSULIN GLARGINE [LANTus] (100 UNITS/ML) SYG SC (20:41)
[2018-10-11] MEDS: ATORVASTATIN 40 MG TAB PO (20:43)
[2018-10-11] MEDS: LORAZEPAM 2 MG INJ IV (20:48)
[2018-10-11] MEDS: LACTOBACILLUS RHAMNOSUS CAP PO (20:55)
[2018-10-11] MEDS: HYDROCODONE/APAP (10/325) TAB PO (22:04)
[2018-10-12] MEDS: ACCU-CHEK XX ×5 (02:00→20:15)
[2018-10-12] MEDS: HYDROmorphONE 0.5 MG/0.5 ML SYG IV (02:18)
[2018-10-12 07:19] LABS: ANION GAP 9 (5-13); BLOOD UREA NITROGEN 10 mg/dl (7-20); CALCIUM 8.8 mg/dl (8.4-10.2); CARBON DIOXIDE 32 mmol/L (21-31); CHLORIDE 85 mmol/L (97-110); CREATININE 0.42 mg/dl (0.44-1.00); Estimated GFR > 60 mL/min (>60); GLUCOSE 89 mg/dl (70-220); MAGNESIUM 1.6 mg/dl (1.7-2.5); PHOSPHORUS 5.2 mg/dl (2.5-4.9); POTASSIUM 3.4 mmol/L (3.5-5.1); SODIUM 126 mmol/L (135-144)
[2018-10-12] MEDS: INSULIN ASPART [NOVOLOG] 3 ML PEN SC ×7 (08:00→20:15)
[2018-10-12] MEDS: HYDROmorphONE 1 MG/ML SYG IV ×3 (08:28→20:08)
[2018-10-12] MEDS: POLYETHYLENE GLYCOL 17 GM PACKET PO ×2 (08:31→20:08)
[2018-10-12] MEDS: ESCITALOPRAM 10 MG TAB PO (08:32)
[2018-10-12] MEDS: DEMECLOCYCLINE 150 MG TAB PO ×3 (08:32→20:08)
[2018-10-12] MEDS: metFORMIN 500 MG TAB NGT ×2 (08:32→17:07)
[2018-10-12] MEDS: FAMOTIDINE 20 MG TAB PO (08:33)
[2018-10-12] MEDS: LORATADINE 10 MG TAB PO (08:33)
[2018-10-12] MEDS: SODIUM CHLORIDE 1 GM TAB PO ×3 (08:33→20:08)
[2018-10-12] MEDS: LACTOBACILLUS RHAMNOSUS CAP PO ×2 (08:33→20:08)
[2018-10-12] MEDS: ENOXAPARIN 40 MG/0.4 ML SYG SC (08:34)
[2018-10-12] MEDS: POTASSIUM CHLORIDE (SR) 20 MEQ TAB PO (08:41)
[2018-10-12] MEDS: MAGNESIUM SULFATE 2 GM/50 ML 50 ML IVPB (08:42)
[2018-10-12] MEDS ORDERED: BISACODYL (EC) 5 MG TAB PO (13:30)
[2018-10-12 14:28] LABS: SODIUM 127 mmol/L (135-144)
[2018-10-12] MEDS: GABAPENTIN 300 MG CAP PO (17:36)
[2018-10-12] MEDS: ONDANSETRON 4 MG INJ IV (18:52)
[2018-10-12] MEDS: ATORVASTATIN 40 MG TAB PO (20:08)
[2018-10-12] MEDS: INSULIN GLARGINE [LANTus] (100 UNITS/ML) SYG SC (20:10)
[2018-10-12] MEDS: LORAZEPAM 2 MG INJ IV (21:19)
[2018-10-13] MEDS: HYDROCODONE/APAP (10/325) TAB PO ×2 (00:06→19:42)
[2018-10-13] MEDS: ACCU-CHEK XX ×5 (01:12→21:00)
[2018-10-13] MEDS: HYDROmorphONE 1 MG/ML SYG IV ×4 (06:46→21:07)
[2018-10-13 06:53] LABS: ADD MAN DIFF? NO
[2018-10-13 07:04] LABS: BASOPHIL # 0.1 10^3/ul (0.0-0.1); BASOPHILS % 0.8 % (0.0-2.0); EOSINOPHILS # 0.4 10^3/ul (0.0-0.5); EOSINOPHILS % 4.7 % (0.0-7.0); HEMOGLOBIN 10.3 g/dl (12.0-16.0); LYMPHOCYTES # 2.5 10^3/ul (0.8-2.9); LYMPHOCYTES % 32.7 % (15.0-51.0); MEAN CORPUSCULAR HEMOGLOBIN 29.1 pg (29.0-33.0); MEAN CORPUSCULAR HGB CONC 33.2 g/dl (32.0-37.0); MEAN CORPUSCULAR VOLUME 87.6 fl (82.0-101.0); MEAN PLATELET VOLUME 8.2 fl (7.4-10.4); MONOCYTE # 0.8 10^3/ul (0.3-0.9); MONOCYTES % 9.7 % (0.0-11.0); NEUTROPHILS % 51.3 % (39.0-77.0); PLATELET COUNT 400 10^3/UL (140-415); RED BLOOD COUNT 3.54 10^6/ul (4.20-5.40); RED CELL DISTRIBUTION WIDTH 12.2 % (11.5-14.5)
[2018-10-13 07:04] LABS: WHITE BLOOD COUNT 7.7 10^3/ul (4.8-10.8)
[2018-10-13 07:39] LABS: ANION GAP 10 (5-13); BLOOD UREA NITROGEN 11 mg/dl (7-20); CALCIUM 9.1 mg/dl (8.4-10.2); CARBON DIOXIDE 33 mmol/L (21-31); CHLORIDE 87 mmol/L (97-110); CREATININE 0.49 mg/dl (0.44-1.00); Estimated GFR > 60 mL/min (>60); GLUCOSE 103 mg/dl (70-220); PHOSPHORUS 5.5 mg/dl (2.5-4.9); POTASSIUM 4.2 mmol/L (3.5-5.1); SODIUM 130 mmol/L (135-144)
[2018-10-13] MEDS: INSULIN ASPART [NOVOLOG] 3 ML PEN SC ×7 (08:00→20:04)
[2018-10-13] MEDS: FAMOTIDINE 20 MG TAB PO (08:26)
[2018-10-13] MEDS: DEMECLOCYCLINE 150 MG TAB PO ×3 (08:27→20:02)
[2018-10-13] MEDS: SODIUM CHLORIDE 1 GM TAB PO ×3 (08:31→20:02)
[2018-10-13] MEDS: ENOXAPARIN 40 MG/0.4 ML SYG SC (08:32)
[2018-10-13] MEDS: LACTOBACILLUS RHAMNOSUS CAP PO ×2 (08:33→20:02)
[2018-10-13] MEDS: metFORMIN 500 MG TAB NGT ×2 (08:33→17:13)
[2018-10-13] MEDS: POLYETHYLENE GLYCOL 17 GM PACKET PO ×2 (08:34→20:05)
[2018-10-13] MEDS: ESCITALOPRAM 10 MG TAB PO (08:34)
[2018-10-13] MEDS: GABAPENTIN 300 MG CAP PO (18:00)
[2018-10-13] MEDS ORDERED: BISACODYL 10 MG SUPP PR (18:30)
[2018-10-13] MEDS ORDERED: BISACODYL (EC) 5 MG TAB PO (18:30)
[2018-10-13] MEDS: ATORVASTATIN 40 MG TAB PO (20:02)
[2018-10-13] MEDS: INSULIN GLARGINE [LANTus] (100 UNITS/ML) SYG SC (20:18)
[2018-10-13] MEDS: LORAZEPAM 2 MG INJ IV (22:12)
[2018-10-14] MEDS: ACCU-CHEK XX ×5 (01:50→21:00)
[2018-10-14] MEDS: HYDROmorphONE 1 MG/ML SYG IV ×6 (01:51→23:48)
[2018-10-14] MEDS: INSULIN ASPART [NOVOLOG] 3 ML PEN SC ×7 (08:00→20:35)
[2018-10-14] MEDS: SODIUM CHLORIDE 1 GM TAB PO ×3 (08:22→20:30)
[2018-10-14] MEDS: POLYETHYLENE GLYCOL 17 GM PACKET PO ×2 (08:22→20:32)
[2018-10-14] MEDS: HYDROCODONE/APAP (10/325) TAB PO ×2 (08:22→20:33)
[2018-10-14] MEDS: DEMECLOCYCLINE 150 MG TAB PO ×3 (08:22→20:31)
[2018-10-14] MEDS: ESCITALOPRAM 10 MG TAB PO (08:23)
[2018-10-14] MEDS: FAMOTIDINE 20 MG TAB PO (08:23)
[2018-10-14] MEDS: metFORMIN 500 MG TAB NGT ×2 (08:23→17:18)
[2018-10-14] MEDS: LACTOBACILLUS RHAMNOSUS CAP PO ×2 (08:23→20:31)
[2018-10-14] MEDS: ENOXAPARIN 40 MG/0.4 ML SYG SC (08:33)
[2018-10-14 09:25] LABS: ANION GAP 12 (5-13); BLOOD UREA NITROGEN 9 mg/dl (7-20); CALCIUM 8.9 mg/dl (8.4-10.2); CARBON DIOXIDE 30 mmol/L (21-31); CHLORIDE 90 mmol/L (97-110); CREATININE 0.43 mg/dl (0.44-1.00); Estimated GFR > 60 mL/min (>60); GLUCOSE 117 mg/dl (70-220); PHOSPHORUS 5.1 mg/dl (2.5-4.9); POTASSIUM 3.9 mmol/L (3.5-5.1); SODIUM 132 mmol/L (135-144)
[2018-10-14] MEDS: GABAPENTIN 300 MG CAP PO (19:00)
[2018-10-14] MEDS: INSULIN GLARGINE [LANTus] (100 UNITS/ML) SYG SC (20:00)
[2018-10-14] MEDS: ATORVASTATIN 40 MG TAB PO (20:31)
[2018-10-14] MEDS: LORAZEPAM 2 MG INJ IV (22:42)
[2018-10-15] MEDS: ACCU-CHEK XX ×3 (02:00→11:30)
[2018-10-15] MEDS: HYDROmorphONE 1 MG/ML SYG IV ×3 (05:59→16:28)
[2018-10-15 07:23] LABS: ANION GAP 10 (5-13); BLOOD UREA NITROGEN 10 mg/dl (7-20); CALCIUM 8.8 mg/dl (8.4-10.2); CARBON DIOXIDE 32 mmol/L (21-31); CHLORIDE 92 mmol/L (97-110); CREATININE 0.44 mg/dl (0.44-1.00); Estimated GFR > 60 mL/min (>60); GLUCOSE 112 mg/dl (70-220); MAGNESIUM 1.9 mg/dl (1.7-2.5); PHOSPHORUS 4.3 mg/dl (2.5-4.9); POTASSIUM 4.1 mmol/L (3.5-5.1); SODIUM 134 mmol/L (135-144)
[2018-10-15] MEDS: INSULIN ASPART [NOVOLOG] 3 ML PEN SC ×4 (08:00→12:36)
[2018-10-15] MEDS: LACTOBACILLUS RHAMNOSUS CAP PO (08:31)
[2018-10-15] MEDS: FAMOTIDINE 20 MG TAB PO (08:31)
[2018-10-15] MEDS: DEMECLOCYCLINE 150 MG TAB PO ×2 (08:31→12:35)
[2018-10-15] MEDS: POLYETHYLENE GLYCOL 17 GM PACKET PO (08:31)
[2018-10-15] MEDS: metFORMIN 500 MG TAB NGT (08:31)
[2018-10-15] MEDS: ESCITALOPRAM 10 MG TAB PO (08:32)
[2018-10-15] MEDS: SODIUM CHLORIDE 1 GM TAB PO ×2 (08:32→12:35)
[2018-10-15] MEDS: ENOXAPARIN 40 MG/0.4 ML SYG SC (08:33)
[2018-10-15] MEDS: HYDROCODONE/APAP (10/325) TAB PO (08:43)
== END 2018-10-15 17:35 | DRG 488 ==
LOC: MS1 20:27 → TEL 10-08 15:02 → 6WM 10-09 15:43 → 5EC 10-10 15:15 → FTE 16:04
PROVIDERS: Family Medicine
PROC: 0QSH04Z Reposition Left Tibia with Internal Fixation Device, Open Approach (ICD-10-PCS; principal; 2018-10-03 14:58)
PROC: 0SQD0ZZ Repair Left Knee Joint, Open Approach (ICD-10-PCS; 2018-10-03 14:58)
PROC: 02HV33Z Insertion of Infusion Device into Superior Vena Cava, Percutaneous Approach (ICD-10-PCS; 2018-10-03 14:58)
DX: S82.142A Displaced bicondylar fracture of left tibia, initial encounter for closed fracture (principal); G93.41 Metabolic encephalopathy; S06.9X1A Unspecified intracranial injury with loss of consciousness of 30 minutes or less, initial encounter; M25.062 Hemarthrosis, left knee; N39.0 Urinary tract infection, site not specified; E22.2 Syndrome of inappropriate secretion of antidiuretic hormone; F33.9 Major depressive disorder, recurrent, unspecified; E87.1 Hypo-osmolality and hyponatremia; S82.301A Unspecified fracture of lower end of right tibia, initial encounter for closed fracture; E11.9 Type 2 diabetes mellitus without complications; V03.99XA Pedestrian with other conveyance injured in collision with car, pick-up truck or van, unspecified whether traffic or nontraffic accident, initial encounter; Y92.481 Parking lot as the place of occurrence of the external cause; K21.9 Gastro-esophageal reflux disease without esophagitis; F41.9 Anxiety disorder, unspecified; S00.03XA Contusion of scalp, initial encounter; B95.1 Streptococcus, group B, as the cause of diseases classified elsewhere; E78.5 Hyperlipidemia, unspecified
CPT/HCPCS: 36415; 36569; 70450; 71045; 72125; 73560; 73562; 73600-LT; 73610; 73610-RT; 73700; 76937; 80048; 80053; 80061; 80307; 81001; 81003; 82043; 82533; 82962; 83036; 83735; 83930; 83935; 84100; 84155; 84295; 84300; 84443; 84484; 84560; 85025; 85610; 85730; 86850; 86900; 86901; 86920; 87075; 87086; 93005; 93306; 97110; 97161; 97530; 97542; 99285-25